=== PATIENT | female | born 1975 | race Caucasian/White ===

== ENCOUNTER → 2019-05-20 | Outpatient (CLI) | payer MEDICAID ==
[~2019-05-20] MED LIST: ALLEGRA 180MG180 MG PO; AMITRIPTYLINE H10 M1 PO; AMOXICILLIN875 MG PO; CEPHALEXIN500 M1 PO; CLONAZEPAM0.5 MG PO; CLONAZEPAM1 M1 PO; FLEXERIL 1010 MG/TAB PO; KLONOPIN 1MG1 MG PO; LAMICTAL150 MG PO; LAMICTAL200 MG PO; MEDROL 4MG DOSPA4 MG PO; NASONEX SPRAY17 GM NS; NORCO 325 MG-51 TAB PO; NORCO 325 MG-7.1 TAB PO; PERCOCET 325 MG1 TA2 PO; SINGULAIR 110 MG/TAB PO; TAGAMET200 MG PO; VISTARIL 2525 MG/CAP PO; ZITHROMAX 250M250 MG; ZITHROMAX500 M2 PO
== END ==
LOC: BHSO 10:43
DX: F31.81 Bipolar II disorder (principal)

== ENCOUNTER → 2019-06-24 | Outpatient (CLI) | payer MEDICAID | LOC: BHSO 09:59 | DX: F33.41 Major depressive disorder, recurrent, in partial remission (principal) | CPT/HCPCS: G0463 ==

== ENCOUNTER → 2023-10-15 | Outpatient (CLI) | payer OTHER | LOC: MHCPAIN 10:32 | DX: M54.16 Radiculopathy, lumbar region (principal); M48.061 Spinal stenosis, lumbar region without neurogenic claudication; I10 Essential (primary) hypertension; M79.7 Fibromyalgia | CPT/HCPCS: G0463 ==